=== PATIENT | female | born 1935 | race Caucasian/White ===

== ENCOUNTER 2017-11-14 02:15 | Emergency (ER) | payer MEDICARE ==
[2017-11-14 02:50] LABS: BASOPHILS 0.6 % (0-2); EOSINOPHILS 6.7 % (0-7); HEMOGLOBIN 13.6 g/dL (12-16); LYMPHOCYTES 40.2 % (15-50); MCH 28.8 pg (26.0-34.0); MCHC 33.2 g/dL (31.0-37.0); MCV 86.7 fL (80.0-100.0); MEAN PLATELET VOLUME 9.8 fL (7.4-10.4); MONOCYTES 11.6 % (2-11); NEUTROPHILS 40.9 % (40-80); PLATELET COUNT 253 10x3/uL (130-400); RBC 4.73 10x6/uL (4.00-5.40); RDW 13.4 % (11.5-14.5); WBC 5.1 10x3/uL (4.8-10.8)
[2017-11-14 03:03] LABS: ALBUMIN 3.4 g/dL (3.4-5.0); ALKALINE PHOSPHATASE 82 U/L (46-116); ALT (SGPT) 37 U/L (10-68); BILIRUBIN - TOTAL 0.27 mg/dL (0.2-1.3); CALC OSMOLALITY 281 mosm/kg (275-300); CARBON DIOXIDE 26.1 mmol/L (21.0-32.0); CHLORIDE - SERUM 105 mmol/L (98-107); CREATININE - SERUM 0.9 mg/dL (0.6-1.3); GLUCOSE 97 mg/dL (74-106); POTASSIUM - SERUM 3.9 mmol/L (3.5-5.1); PROTEIN - SERUM 6.8 g/dL (6.4-8.2); SODIUM 140 mmol/L (136-145); UREA NITROGEN 21 mg/dL (7-18); eGFR NON AFRICAN AMERICAN 63 mL/min (90-120)
[2017-11-14 03:14] LABS: CKMB 0.7 U/L (0.0-3.6); CREATINE KINASE 75 UL (21-215)
[2017-11-14 03:16] LABS: TROPONIN-I < 0.017 ng/mL (0.000-0.060)
== END 2017-11-14 06:30 | disposition home or self-care (01) ==
LOC: D.ER 02:15
PROVIDERS: Family Medicine
DX: R06.00 Dyspnea, unspecified (principal); I10 Essential (primary) hypertension; Z86.73 Personal history of transient ischemic attack (TIA), and cerebral infarction without residual deficits

== ENCOUNTER → 2017-11-28 12:57 | Outpatient (CLI) | payer MEDICARE, BC ==
[~2017-11-28 12:57] MED LIST: CHILDREN'S ASPI81 MG PO; COZAAR100 MG PO; DEPAKOTE250 MG PO; GABAPENTIN100 MG PO
== END | disposition home or self-care (01) ==
LOC: D.CT 12:57
DX: R93.1 Abnormal findings on diagnostic imaging of heart and coronary circulation (principal); I63.9 Cerebral infarction, unspecified

== ENCOUNTER 2018-01-01 04:14 | Emergency (ER) | payer MEDICARE, BC | END 2018-01-01 06:10 | disposition home or self-care (01) | LOC: D.ER 04:14 | DX: R51 Headache (principal); Z86.73 Personal history of transient ischemic attack (TIA), and cerebral infarction without residual deficits; I10 Essential (primary) hypertension ==

== ENCOUNTER 2018-01-16 17:37 | Observation (INO) | payer MEDICARE, BC ==
[2018-01-16 18:46] LABS: BASOPHILS 0.6 % (0-2); HEMATOCRIT 40.2 % (36.0-48.0); HEMOGLOBIN 13.5 g/dL (12-16); IMMATURE GRANULOCYTES 0.1 % (0-5); MCH 29.1 pg (26.0-34.0); MCHC 33.6 g/dL (31.0-37.0); MCV 86.6 fL (80.0-100.0); MEAN PLATELET VOLUME 9.7 fL (7.4-10.4); MONOCYTES 11.2 % (2-11); NEUTROPHILS 60.1 % (40-80); PLATELET COUNT 294 10x3/uL (130-400); RBC 4.64 10x6/uL (4.00-5.40); RDW 13.2 % (11.5-14.5); WBC 7.2 10x3/uL (4.8-10.8)
[2018-01-16 19:00] LABS: INR 1.02 (0.85-1.17)
[2018-01-16 19:01] LABS: APTT 25.2 SECONDS (22.8-39.4)
[2018-01-16 20:17] LABS: ALBUMIN 3.8 g/dL (3.4-5.0); ANION GAP 12.9 mmol/L (8-16); BILIRUBIN - TOTAL 0.4 mg/dL (0.2-1.3); CALCIUM 9.3 mg/dL (8.5-10.1); CARBON DIOXIDE 27.1 mmol/L (21.0-32.0); CREATININE - SERUM 0.9 mg/dL (0.6-1.3); PROTEIN - SERUM 6.9 g/dL (6.4-8.2)
[2018-01-17 05:34] LABS: BASOPHILS 0.8 % (0-2); EOSINOPHILS 5.4 % (0-7); HEMATOCRIT 37.9 % (36.0-48.0); HEMOGLOBIN 12.7 g/dL (12-16); IMMATURE GRANULOCYTES 0.3 % (0-5); LYMPHOCYTES 32.3 % (15-50); MCH 28.9 pg (26.0-34.0); MCHC 33.5 g/dL (31.0-37.0); MCV 86.3 fL (80.0-100.0); MEAN PLATELET VOLUME 9.9 fL (7.4-10.4); MONOCYTES 13.2 % (2-11); PLATELET COUNT 291 10x3/uL (130-400); RBC 4.39 10x6/uL (4.00-5.40); RDW 13.2 % (11.5-14.5); WBC 7.6 10x3/uL (4.8-10.8)
[2018-01-17 06:22] LABS: ALBUMIN 3.3 g/dL (3.4-5.0); ANION GAP 9.1 mmol/L (8-16); BILIRUBIN - TOTAL 0.3 mg/dL (0.2-1.3); CALCIUM 8.8 mg/dL (8.5-10.1); CARBON DIOXIDE 28.9 mmol/L (21.0-32.0); CREATININE - SERUM 0.8 mg/dL (0.6-1.3); PROTEIN - SERUM 6.1 g/dL (6.4-8.2); THYROID STIMULATING HORMONE 5.5 uIU/mL (0.36-3.74)
[2018-01-17] MEDS ORDERED: COZAAR100 MG PO (09:53)
[2018-01-17] MEDS ORDERED: GABAPENTIN100 MG PO (09:54)
[2018-01-17] MEDS ORDERED: CHILDREN'S ASPI81 MG PO (09:55)
[2018-01-17] MEDS ORDERED: DEPAKOTE250 MG PO (13:47)
== END 2018-01-17 14:22 | disposition home or self-care (01) ==
LOC: D.ER 17:37 → D.EDHOLD 21:06 → OBSVTIME 21:07 → D.EDHOLD 01-17 08:32
PROVIDERS: Emergency Medicine; Family Medicine
DX: G43.909 Migraine, unspecified, not intractable, without status migrainosus (principal); G45.9 Transient cerebral ischemic attack, unspecified; G40.909 Epilepsy, unspecified, not intractable, without status epilepticus; Z86.73 Personal history of transient ischemic attack (TIA), and cerebral infarction without residual deficits; I10 Essential (primary) hypertension